=== PATIENT | female | born 1945 | race African-American/Black ===

== ENCOUNTER 2017-08-16 12:59 | Emergency (ER) | payer MEDICARE, MEDICAID ==
[~2017-08-16] VITALS: Ht 170.2 cm; Wt 60.0 kg
[2017-08-16] MEDS ORDERED: ACETAMINOPHEN 325MG TABLET PO ONE (15:30)
[2017-08-16 17:21] VITALS: BP 159/93
== END 2017-08-16 17:24 | disposition home or self-care (01) ==
LOC: ER 12:59
DX: S16.1XXA Strain of muscle, fascia and tendon at neck level, initial encounter (principal); I11.0 Hypertensive heart disease with heart failure; I50.9 Heart failure, unspecified; E78.00 Pure hypercholesterolemia, unspecified; Z86.73 Personal history of transient ischemic attack (TIA), and cerebral infarction without residual deficits; V89.2XXA Person injured in unspecified motor-vehicle accident, traffic, initial encounter; Y93.89 Activity, other specified; Y92.89 Other specified places as the place of occurrence of the external cause; Y99.8 Other external cause status
CPT/HCPCS: 70450; 71020; 72125; 99284

== ENCOUNTER 2019-04-23 11:35 | Inpatient (IN) | payer MEDICARE, MEDICAID ==
[~2019-04-23] VITALS: Ht 167.6 cm; Wt 78.9 kg
[2019-04-23] MEDS ORDERED: SODIUM CHLORIDE 0.9% 1,000 ML IV ONE (12:20)
[2019-04-23 12:57] LABS: BASOPHILS % 0.7 % (0.0-2.0); EOSINOPHILS % 3.8 % (0.0-5.0); HEMATOCRIT. 39.1 % (36.0-48.0); HEMOGLOBIN. 13.3 g/dL (12.0-16.0); LYMPHOCYTES % 13.6 % (20.0-50.0); MEAN CORPUSCULAR HEMOGLOBIN 31.5 pg (28.0-32.0); MEAN CORPUSCULAR VOLUME 92.9 fL (81.0-99.0); MEAN PLATELET VOLUME 8.1 fl (7.4-10.4); MONOCYTES % 7.3 % (2.0-8.0); NEUTROPHILS % 74.6 % (40.0-76.0); PLATELET 237 x1000/uL (130-400); RED BLOOD CELL COUNT 4.21 mill/uL (4.2-5.4); RED CELL DISTRIBUTION WIDTH 14.9 % (11.6-14.6)
[2019-04-23 13:04] LABS: CHLORIDE 108 mEq/L (98-107); INR 1.1
[2019-04-23 13:10] LABS: LDL CHOLESTEROL 119 mg/dL (5-100)
[2019-04-23 13:13] LABS: CREATINE KINASE 143 IU/L (26-192)
[2019-04-23 14:47] LABS: CLARITY URINE CLEAR (CLEAR); COLOR URINE YELLOW (YELLOW); KETONES URINE NEGATIVE (NEGATIVE); LEUKOCYTE ESTERASE URINE NEGATIVE (NEGATIVE); NITRITE URINE NEGATIVE (NEGATIVE); OCCULT BLOOD URINE NEGATIVE (NEGATIVE); PROTEIN URINE NEGATIVE (NEGATIVE); SPECIFIC GRAVITY URINE 1.013 (1.005-1.030); UROBILINOGEN URINE 0.2 E.U./dL (0.2-1.0)
[2019-04-23] MEDS ORDERED: ONDANSETRON HCL 4MG/2ML INJ IV PRN (15:45)
[2019-04-23] MEDS ORDERED: CLONIDINE 0.1MG TABLET PO PRN (15:45)
[2019-04-23] MEDS ORDERED: HYDROCODONE/ACETAMINOPHEN 5/325MG TABLET PO PRN (15:45)
[2019-04-23] MEDS ORDERED: LORAZEPAM 0.5MG TABLET PO PRN (15:45)
[2019-04-23] MEDS ORDERED: DOCUSATE SODIUM 100MG CAPSULE PO PRN (15:45)
[2019-04-23] MEDS ORDERED: IPRATROPIUM/ALBUTEROL 0.5-3(2.5)MG/3ML NEB NEB PRN (15:45)
[2019-04-23] MEDS ORDERED: ASPIRIN 81MG TABLET PO ONE (15:45)
[2019-04-23] MEDS ORDERED: NA PHOS,M-B/NA PHOS,DI-BA ENEMA 118ML PR PRN (15:45)
[2019-04-23] MEDS ORDERED: MAGNESIUM/ALUMINUM HYDROXIDE/SIMETHICONE 30ML UDC PO PRN (15:45)
[2019-04-23] MEDS ORDERED: DIPHENHYDRAMINE 50MG/ML VIAL IV PRN (15:45)
[2019-04-23] MEDS ORDERED: GUAIFENESIN 200MG/10ML SUGAR FREE UDC PO PRN (15:45)
[2019-04-23] MEDS ORDERED: ACETAMINOPHEN 650MG SUPP PR PRN (15:45)
[2019-04-23 17:00] VITALS: BP 153/67
[2019-04-23] MEDS ORDERED: SODIUM CHLORIDE 0.45% 1,000 ML IV SCH (17:00)
[2019-04-23] MEDS ORDERED: NICOTINE 14MG PATCH TD SCH ×2 (17:30→21:00)
[2019-04-23] MEDS ORDERED: ASPI-1158 MT (19:08)
[2019-04-23] MEDS ORDERED: LISI-604 MT (19:08)
[2019-04-23] MEDS ORDERED: CELE100C97 MT (19:08)
[2019-04-23] MEDS ORDERED: CHOL200074 MT (19:13)
[2019-04-23] MEDS ORDERED: SULF1TAB48 MT (19:13)
[2019-04-23] MEDS ORDERED: AMLO-337 MT (19:13)
[2019-04-23 20:00] VITALS: BP 136/76
[2019-04-23] MEDS ORDERED: ENOXAPARIN 40MG/0.4ML SYR SUBCUT SCH (20:00)
[2019-04-23] MEDS: SODIUM CHLORIDE 0.45% 1,000 ML IV SCH (20:56)
[2019-04-23] MEDS ORDERED: ATORVASTATIN CALCIUM 10MG TABLET PO SCH (21:00)
[2019-04-24] VITALS: BP_SYST 125; BP_SYST 131; BP_DIAS 68; BP_DIAS 79
[2019-04-24] MEDS: ACETAMINOPHEN 325MG TABLET PO PRN ×2 (00:20→06:27)
[2019-04-24 04:00] VITALS: BP 131/79
[2019-04-24 08:00] VITALS: BP 156/83
[2019-04-24 08:04] LABS: HEMATOCRIT. 37.8 % (36.0-48.0); HEMOGLOBIN. 12.8 g/dL (12.0-16.0); MEAN CORPUSCULAR HEMOGLOBIN 31.6 pg (28.0-32.0); MEAN CORPUSCULAR VOLUME 93.1 fL (81.0-99.0); MEAN PLATELET VOLUME 8.5 fl (7.4-10.4); PLATELET 210 x1000/uL (130-400); RED BLOOD CELL COUNT 4.06 mill/uL (4.2-5.4)
[2019-04-24] MEDS ORDERED: ASPIRIN 81MG EC TABLET PO SCH (09:00)
[2019-04-24 10:07] LABS: CHLORIDE 107 mEq/L (98-107)
[2019-04-24 10:23] LABS: HDL CHOLESTEROL 57 mg/dL (40-59); LDL CHOLESTEROL 107 mg/dL (5-100)
[2019-04-24 10:51] LABS: PLATELET ESTIMATE NORMAL
[2019-04-24 12:00] VITALS: BP 145/75
[2019-04-24] MEDS: SODIUM CHLORIDE 0.45% 1,000 ML IV SCH (13:54)
[2019-04-24 15:00] LABS: *BARBITURATES SCREEN URINE NEGATIVE (NEGATIVE); CANNABINOID URINE SCREEN NEGATIVE (NEGATIVE)
[2019-04-24 15:01] LABS: *AMPHETAMINES SCREEN URINE NEGATIVE (NEGATIVE); *BENZODIAZEPINES SCREEN URINE NEGATIVE (NEGATIVE); *COCAINE SCREEN URINE PRESUMTIVE POSITIVE (NEGATIVE); METHADONE URINE SCREEN NEGATIVE (NEGATIVE); OPIATES URINE SCREEN NEGATIVE (NEGATIVE); PHENCYCLIDINE URINE SCREEN NEGATIVE (NEGATIVE)
[2019-04-24 15:17] LABS: *AMPHETAMINES SCREEN URINE NEGATIVE (NEGATIVE); *BARBITURATES SCREEN URINE NEGATIVE (NEGATIVE); *BENZODIAZEPINES SCREEN URINE NEGATIVE (NEGATIVE); *COCAINE SCREEN URINE PRESUMTIVE POSITIVE (NEGATIVE); METHADONE URINE SCREEN NEGATIVE (NEGATIVE); OPIATES URINE SCREEN NEGATIVE (NEGATIVE); PHENCYCLIDINE URINE SCREEN NEGATIVE (NEGATIVE)
[2019-04-24 15:18] LABS: CANNABINOID URINE SCREEN NEGATIVE (NEGATIVE)
[2019-04-24 15:19] VITALS: BP 145/75
== END 2019-04-24 16:46 | disposition home or self-care (01) | DRG 74 ==
LOC: ER 11:35 → 8WST 14:40 → EDBEDREQ 14:51 → SUPCPDRO 14:51 → ENRESERV 15:36
PROVIDERS: ADMIT Internal Medicine; ATTEND Internal Medicine
DX: G90.8 Other disorders of autonomic nervous system (principal); I69.351 Hemiplegia and hemiparesis following cerebral infarction affecting right dominant side; E86.0 Dehydration; I50.9 Heart failure, unspecified; I11.0 Hypertensive heart disease with heart failure; F17.210 Nicotine dependence, cigarettes, uncomplicated; E78.5 Hyperlipidemia, unspecified; E78.00 Pure hypercholesterolemia, unspecified; F14.90 Cocaine use, unspecified, uncomplicated; R73.9 Hyperglycemia, unspecified; M47.812 Spondylosis without myelopathy or radiculopathy, cervical region; Z79.82 Long term (current) use of aspirin
CPT/HCPCS: 36415; 70551; 71045; 80061; 80305; 81003; 82550; 82962; 83036; 83721; 83880; 84439; 84443; 84484; 92610; 93005; 93306; 93880; 96372; 97162; 97166; 99285; J1650; J7030